=== PATIENT | female | born 1965 | race Caucasian/White ===

== ENCOUNTER 2019-04-26 23:00 | Emergency (ER) | payer MEDICAID ==
[~2019-04-26] VITALS: Ht 162.6 cm; Wt 68.0 kg
[2019-04-27] MEDS ORDERED: ACETAMINOPHEN 500MG TABLET PO ONE (00:30)
[2019-04-27] MEDS ORDERED: KETOROLAC 60MG/2ML VIAL IM ONE (01:45)
[2019-04-27 02:27] VITALS: BP 140/70
== END 2019-04-27 03:15 | disposition home or self-care (01) ==
LOC: ER 23:44
DX: S13.8XXA Sprain of joints and ligaments of other parts of neck, initial encounter (principal); V49.49XA Driver injured in collision with other motor vehicles in traffic accident, initial encounter; Y93.89 Activity, other specified; Y92.89 Other specified places as the place of occurrence of the external cause; Y99.8 Other external cause status; E11.9 Type 2 diabetes mellitus without complications; I10 Essential (primary) hypertension; Z90.10 Acquired absence of unspecified breast and nipple
CPT/HCPCS: 70450; 72125; 72128; 72131; 96372; 99284; J1885; Z7610